=== PATIENT | male | born 1975 ===

== ENCOUNTER 2023-02-07 20:21 | Emergency (ER) | payer SELFPAY ==
--- OUTSIDE RECORDS SUMMARY | 2023-02-07 20:24 | XMS REPORT | Continuity of Care Document ---
:1975 Author Organization [facility] t Address [address] [place] [address] [place] [id number] Care Team Providers Name Role Phone Kyle Lyons Attending Clinician Unavailable Jem Castro Attending Clinician Unavailable Yury Gutierrez Attending Clinician Unavailable Physician, No Primary or Family Admitting Clinician Unavaila ble KNOW, DOES_NOT Admitting Clinician Unavailable Payers Payer Name Policy Type Policy Number Effective Date Expiration Date S ource Problems This patient has no known problems. Allergies, Adverse Reactions, Alerts Allergy Allergy Status Severity Reaction(s) Onset Inactive Treating Comm ents Source Name Type Date Date Clinician No Known DA Active U 2020-0 [facility] 09[facility]20 [facility] No Known DA Active U 2020-0 [facility] Allergie 09-20 [facility] Medications This patient has no known medications. Procedures This patient has no known procedures. Encounters Start End Encounter Admission Attending Care Care Encounter Source Date/Time Date/Time Type Type Clinicians Facility Department ID 2019-09-21 [facility] [id number] [facility] 22:36:00 [facility] 2022-05-08 2022-05-08 Emergency EM HARVEY Lyons ER [id number] [facility] 12:35:00 13:33:00 [facility] 2021-08-28 2021-08-28 Emergency EM HARVEY Castro [facility] [id number] [facility] 21:31:00 22:19:00 Jem [id number] [facility] 2021-08-28 2021-08-28 Emergency EM Gloria, [facility] [id number] [facility] 21:31:00 22:19:00 Jem Lynne [facility] 2021-04-03 2021-04-03 Emergency EM Yury Gutierrez [facility] [id number] [facility] 14:25:00 15:52:00 97 [facility] Results Test Description Test Time Test Comments Results Result Comments Source COMPREHENSIVE METABOLIC PANEL 2019-09-22 00:43:00 Test Item Value Reference Range Interpretation Comme nts SODIUM (test code = NA) 141 mmol/L 136-145 N POTASSIUM (test code = K) 4.1 mmol/L 3.5-5.1 N CHLORIDE (test code = CL) 103 mmol/L 98-107 N CARBON DIOXIDE (test code = CO2) 33 mmol/L 21-32 H GLUCOSE (test code = GLU) 91 mg/dL 70-100 N BLOOD UREA NITROGEN (test code = 8 mg/dL 7-18 N BUN) GLOMERULAR FILTRATION RATE (test > 60.00 >=60 Reporting units: code = GFR) mL/min/1.73m\S\ 2 (Modified MDRD formula)RE FERENCE RANGE: > or = 60 ml/mi n/1.73M2IF PATIENT IS AFRI CAN-STATELESS, MULTIPLY REPORT ED RESULT BY1.21. CREATININE (test code = CREAT) 0.98 mg/dl 0.70-1.30 N TOTAL PROTEIN (test code = PROT) 7.6 g/dl 6.4-8.2 N ALBUMIN (test code = ALB) 4.1 g/dl 3.4-5.0 N CALCIUM (test code = CA) 9.1 mg/dL 8.5-10.1 N BILIRUBIN TOTAL (test code = 0.3 mg/dL 0.2-1.0 N BILT) SGOT/AST (test code = AST) 25 U/L 15-37 N SGPT/ALT (test code = ALT) 42 U/L 12-78 N ALKALINE PHOSPHATASE TOTAL (test 75 U/L 45-117 N code = ALKP) [id number] 00:43:00 Test Item Value Reference Range Interpretation Comments LIPASE (test code = LIP) 168 U/L 73-393 N UA RFLX MICROSCOPIC [id number] 00:32:00 Test Item Value Reference Range Interpretation Comments UA COLOR (test code = COLU) YELLOW YELLOW UA APPEARANCE (test code = CLEAR CLEAR APPU) UA GLUCOSE DIPSTICK (test code NEGATIVE mg/dl NORMAL = DGLUU) UA BILIRUBIN DIPSTICK (test NEGATIVE mg/dl NEGATIVE code = BILU) UA KETONE DIPSTICK (test code NEGATIVE mg/dl NEGATIVE = KETU) UA SPECIFIC GRAVITY (test code 1.020 1.001-1.035 N = SGU) UA BLOOD DIPSTICK (test code = NEGATIVE /UL NEGATIVE RUSTY) UA PH DIPSTICK (test code = 8.5 4.6-8.0 A VLADIMIR) UA PROTEIN DIPSTICK (test code NEGATIVE mg/dl NEGATIVE = PROU) UA UROBILINIOGEN DIPSTICK 0.2 mg/dl NORMAL (test code = URO) UA NITRITE DIPSTICK (test code NEGATIVE NEGATIVE = MADELINE) UA LEUKOCYTE ESTERASE DIPSTICK NEGATIVE /UL NEGATIVE (test code = LEUU) UA COMMENT (test code = COMU) CLN CATCH Indication for culture: Flank PainURINE SOURCE: CLEAN CATCH URINECBC W/AUTO DIFF 2019-09-22 00:31:00 Test Item Value Reference Range Interpretation Comments WHITE BLOOD CELL (test code = 7.0 X10(3) 4.5-11.0 N WBC) RED BLOOD CELL (test code = 4.54 X10(6) 4.3-5.9 N RBC) HEMOGLOBIN (test code = HGB) 14.2 g/dL 13.5-18.0 N HEMATOCRIT (test code = HCT) 43.6 % 42.0-52.0 N MEAN CELL VOLUME (test code = 96.0 fL 78-100 N MCV) MEAN CELL HGB (test code = MCH) 31.3 pg 26.0-34.0 N MEAN CELL HGB CONCETRATION 32.6 g/dl 30.0-37.0 N (test code = MCHC) RED CELL DISTRIBUTION WIDTH 11.6 % 11.5-14.5 N (test code = RDW) PLATELET COUNT (test code = 266 X10(3) 150-350 N PLT) MEAN PLATELET VOLUME (test code 9.3 fl 8.7-11.4 N = MPV) NEUTROPHIL % (test code = NT%) 54.5 % 36.0-66.0 N IMMATURE GRANULOCYTE % (test 0.1 % 0.0-2.0 N code = IG%) LYMPHOCYTE % (test code = LY%) 34.1 % 16-50 N MONOCYTE % (test code = MO%) 8.9 % 0.0-13.0 N EOSINOPHIL % (test code = EO%) 2.1 % 0.0-4.5 N BASOPHIL % (test code = BA%) 0.3 % 0.0-1.5 N NEUTROPHIL # (test code = NT#) 3.8 X10(3) 1.7-7.7 N IMMATURE GRANULOCYTE # (test 0.01 X10(3)uL 0.00-0.03 N code = IG#) LYMPHOCYTE # (test code = LY#) 2.4 X10(3) 1.0-4.8 N MONOCYTE # (test code = MO#) 0.6 X10(3) 0.0-0.89 N EOSINOPHIL # (test code = EO#) 0.2 X10(3) 0.0-0.6 N BASOPHIL # (test code = BA#) 0.0 X10(3) 0.0-0.2 N RBC MORPHOLOGY REQUIRED (test NO NORMAL code = RBCM) - CT ABD PELVIS W/O [id number] 00:25:00 Name: TALAT LEO FSED : 1975 Age/S: 43 / M [address] Unit #: [id number] Loc: [place] [address] Phys: Sha Schmid MD Acct: [id number] Dis Date: Status: REG ER PHONE #: Exam Date: 09/21/2019 0001 FAX #: Reason: history of kidney stones EXAMS: CPT CODE:[id number] CT ABD PELVIS W/O CONT [id number] CT abdomen and pelvis without IV contrast. Indication: Abdominal pain Location: R16 Comparison: None Technique: CT images of the abdomen and pelvis were obtained from the diaphragm to the pubic symphysis without the administration of intravenous contrast contrast. Coronal reformats are provided. One or more of the following dose reduction techniques were used:Automated exposure control, adjustment of the mA and/or kV according to patient size, and/or utilization of iterative reconstruction technique. Findings: Lungs bases: Unremarkable. Upper GI: Small hiatal hernia is noted Liver: Noncontrast appearance is unremarkable. Gallbladder: Cholelithiasis is noted. Pancreas: Noncontrast appearance is unremarkable. Spleen: Noncontrast appearance is unremarkable. Adrenal glands: Noncontrast appearance is unremarkable. Kidneys: Noncontrast appearance is unremarkable with exception of small bilateral punctate renal calculi. Bowel: No bowel obstruction. The appendix is unremarkable with exception of internal stool. Large volume of stool seen throughout the colon Peritoneum: No ascites.. No free air or small hiatal hernia is noted Skeletal: No acute fracture.. Impr ession: Although limited by the absence of IV contrast, no definite acute abnormality is seen withinthe abdomen and pelvis to explain the patient's symptomology Additional findings as detailed above PAGE 1 Signed Report (CONTINUED) Name: TALAT LEO FSED : 1975 Age/S: 43 / M [address] Unit #: [id number] Loc: [place] [address] Phys: Sha Schmid MD Acct:[id number] Dis Date: Status: REG ER PHONE #: Exam Date: 09/21/2019 0001 FAX #: Reason: history ofkidney stones EXAMS: CPT CODE: [id number] CT ABD PELVIS W/O CONT 94719 (Continued) ElectronicallySigned by KATHY GILLIS M.D. on 09/22/2019 at 0025 Reported and signed by: KATHY GILLIS M.D. CC: Sha Chahal MD Technologist:Geoff Sparks CT (R) CTDI: 6.59 DLP: 327.15 Trnscb Date/Time: 09/22/2019 (0025) [email or web address] Orig Print D/T: S: 09/22/2019 (0028) PAGE 2 Signed Report
[2023-02-07 22:16] LABS: Absolute Lymphocytes (CBC) 1.4 K/uL (0.7-4.9); Hematocrit 43.6 % (39.6-49.0); Lymphocytes % 14.5 % (15.3-44.8); MCV 91.5 fL (80-100); MPV 7.5 fL (7.6-11.3); Platelets 281 thou/uL (152-406); RBC Red Blood Cell Count 4.77 M/uL (4.33-5.43)
[2023-02-07 22:40] LABS: Albumin 4.3 g/dL (3.4-5.0); Bilirubin Total 0.5 mg/dL (0.2-1.0); Potassium 3.6 mEq/L (3.5-5.1)
[2023-02-07] MEDS ORDERED: NA CHLORIDE 0.9% 1,000 ML ONE (23:59)
--- NOTE | 2023-02-08 00:52 | RAD REPORT ---
EXAM DESCRIPTION: CT - Abdomen Pelvis W Contrast - 02/07/2023 11:03 pm CLINICAL HISTORY: ABD PAIN COMPARISON: No comparisons TECHNIQUE: Thin cut axial CT imaging of the abdomen and pelvis was performed following intravenous a dministration of 95 mL Isovue 300. Multiplanar reformats were generated and reviewed. All CT scans are performed using dose optimization technique as appropriate and may include automated exposure control or mA/KV adjustment according to patient size. FINDINGS: No suspicious findings in the lung bases. The liver, spleen, adrenal glands, and pancreas show no suspicious findings. Gallbladder shows a sing le cholesterol containing 1.8 cm stone near the neck. Symmetric renal function is seen with no hydronephrosis or suspicious renal mass. Multiple punctate c alculi in the left renal upper and lower calyces not exceeding 2-3 millimeter in size. No dilated bowel loops or bowel wall thickening. No free air, free fluid or inflammatory stranding. N o hernia, mass or bulky lymphadenopathy. The urinary bladder is without significant finding. No suspicious bony findings. IMPRESSION: Left renal tiny calculi and a single cholesterol containing gallbladder stone. No other acute intra- abdominal process.
--- NOTE | 2023-02-08 00:59 | EDPHYS ---
Physician Documentation [facility] Name: Kevyn Bangura Jr Age: 47 yrs Sex: Male : 1975 Arrival Date: 02/07/2023 Time: 20:21 Bed 6 Private MD: ED Physician Adeel Sanders HPI: 02/07 21:46 This 47 yrs old Male presents to ER via Ambulatory with complaints of Abdominal Pain. kb 21:46 Pt reports abd pain that started while eating approx 30 minutes [employer]. Denies nausea, kb vomiting and diarrhea, fever. States the pain is sharp and is getting better since onset. Historical: - Allergies: 20:55 No Known Allergies; nj1 - Home Meds: 20:55 None [Active]; nj1 - PMHx: 20:55 None; nj1 - PSHx: 20:55 None; nj1 - Immunization history:: Adult Immunizations up to date. - Social history:: Smoking status: Reported history of juuling and/or vaping. ROS: 21:46 Constitutional: Negative for fever, chills, and weight loss, kb 21:46 Abdomen/GI: Positive for abdominal pain, Negative for nausea, vomiting, and diarrhea, 21:46 All other systems are negative, Exam: 21:46 Constitutional: This is a well developed, well nourished patient who is awake, alert, kb and in no acute distress. Head/Face: Normocephalic, atraumatic. ENT: Moist Mucous membranes Cardiovascular: Regular rate Respiratory: Respirations even and unlabored. No increased work of breathing. Talking in full sentences Skin: Warm, dry with normal turgor. Normal color. MS/ Extremity: Pulses equal, no cyanosis. Neurovascular intact. Full, normal range of motion. Neuro: Awake and alert, GCS 15, oriented to person, place, time, and situation. Moves all extremities. Normal gait. 21:46 Abdomen/GI: Inspection: abdomen appears normal, Bowel sounds: normal, Palpation: soft, in all quadrants, mild abdominal tenderness, in the right lower quadrant, Vital Signs: 20:53 BP 123 / 74; Pulse 74; Resp 18; Temp 97.7; Pulse Ox 100% ; Weight 68.04 kg; Height 5 nj1 ft. 6 in. ; 23:52 BP 119 / 81; Pulse 82; Resp 16; Pulse Ox 100% on R/A; km8 02/08 00:19 BP 121 / 88; Pulse 86; Resp 16; Pulse Ox 100% ; km8 01:15 BP 112 / 98; Pulse 78; Resp 17; Pulse Ox 100% ; jj7 02/07 20:53 Body Mass Index 24.21 (68.04 kg, 167.64 cm) nj1 MDM: 02/07 20:27 Patient medically screened. kb 21:47 Differential diagnosis: appendicitis, bowel obstruction, Cholelithiasis, kb diverticulitis, gastritis, non-specific abd pain, pancreatitis. Data reviewed: vital signs, nurses notes. 02/08 00:58 Counseling: I had a detailed discussion with the patient and/or guardian regarding the kb historical points, exam findings, and any diagnostic results supporting the discharge/admit diagnosis, lab results, radiology results, the need for outpatient follow up, a family practitioner, to return to the emergency department if symptoms worsen or persist or if there are any questions or concerns that arise at home. 02/07 20:52 Order name: CBC with Diff; Complete Time: 22:20 kb 02/07 20:52 Order name: CMP; Complete Time: 22:43 kb 02/07 20:52 Order name: Lipase; Complete Time: 22:43 kb 02/07 20:52 Order name: CT Abd/Pelvis - IV Contrast Only; Complete Time: 00:57 kb 02/07 20:52 Order name: IV Saline Lock; Complete Time: 22:03 kb 02/07 20:52 Order name: Labs collected and sent; Complete Time: 22:03 kb Administered Medications: 02/07 23:49 Drug: NS 0.9% IV 1000 ml IV at 1 bolus Per protocol; 1000 mL bolus Route: IV; Rate: 1 jj7 bolus; Site: right forearm; 02/08 00:24 Follow up: Response: No adverse reaction; IV Status: Completed infusion; IV Intake: km8 1000ml Disposition: 01:26 Co-signature as Attending Physician, Adeel Sanders MD I agree with the assessment sp4 and plan of care. I reviewed the patient's care provided by the Advanced Practice Provider and agree with the diagnosis and treatment plan. Disposition Summary: 02/08/23 00:58 Discharge Ordered Notes: Location: Home kb Condition: Stable kb Diagnosis - Abdominal pain, Generalized kb Followup: kb - With: Emergency Department - When: As needed - Reason: Worsening of condition Followup: kb - With: Private Physician - When: 2 - 3 days - Reason: Recheck today's complaints, Continuance of care, Re-evaluation by your physician Discharge Instructions: - Discharge Summary Sheet kb - Cholelithiasis, Rssb-[id number] kb - Abdominal Pain, Adult, [id number]-[id number] kb Forms: - Medication Reconciliation Form kb - Thank You Letter kb - Antibiotic Education kb - Prescription Opioid Use kb - Patient Portal Instructions kb - Leadership Thank You Letter kb Signatures: Dispatcher [employer] EDMS Marah Feldman, PROCESSING ANALYST-C PROCESSING ANALYST-Zaria Tran RN RN jj7 Adeel Sanders MD MD sp4 Joselyn Farah RN RN nj1 Meredith Palacio RN km8
--- NOTE | 2023-02-08 00:59 | ER ---
Nurse's Notes [facility] Name: Kevyn Bangura Jr Age: 47 yrs Sex: Male : 1975 Arrival Date: 02/07/2023 Time: 20:21 Bed 6 Private MD: Diagnosis: Abdominal pain, Generalized Presentation: 02/07 20:53 Chief complaint: Patient states: "30 minutes ago I started having sharp pain in my nj1 stomach. I feel nauseous". Coronavirus screen: Vaccine status: Patient reports receiving the 2nd dose of the covid vaccine. Ebola Screen: No symptoms or risks identified at this time. Initial Sepsis Screen: Does the patient meet any 2 criteria? No. Patient's initial sepsis screen is negative. Does the patient have a suspected source of infection? No. Patient's initial sepsis screen is negative. Risk Assessment: Do you want to hurt yourself or someone else? Patient reports no desire to harm self or others. Onset of symptoms was February 07, 2023. 20:53 Method Of Arrival: Ambulatory [facility] 20:53 Acuity: AVILA 3 nj Historical: - Allergies: 20:55 No Known Allergies; sd1 - Home Meds: 20:55 None [Active]; nj1 - PMHx: 20:55 None; nj1 - PSHx: 20:55 None; nj1 - Immunization history:: Adult Immunizations up to date. - Social history:: Smoking status: Reported history of juuling and/or vaping. Screenin:49 [facility] ED Fall Risk Assessment (Adult) History of falling in the last 3 months, jj7 including since admission No falls in past 3 months (0 pts) Confusion or Disorientation No (0 pts) Intoxicated or Sedated No (0 pts) Impaired Gait No (0 pts) Mobility Assist Device Used No (0 pt) Altered Elimination No (0 pt) Score/Fall Risk Level 0 - 2 = Low Risk. [facility] ED Fall Risk Assessment (Adult) Score/Fall Risk Level 0 - 2 = Low Risk Oriented to surroundings, Maintained a safe environment, Educated pt \\T\\ family on fall prevention, incl call for assistance when getting out of bed. Abuse screen: Denies threats or abuse. Nutritional screening: No deficits noted. Tuberculosis screening: No symptoms or risk factors identified. Assessment: 23:49 Reassessment: Patient is alert, oriented x 3, equal unlabored respirations, skin jj7 warm/dry/pink. ASSUMED CARE OF PT. PT MOVED TO BED. NO PAIN OR DISTRESS NOTED. CALL DHALIWAL IN REACH Patient denies pain at this time. Patient states feeling better. Pain: Denies pain. GI: No deficits noted. Bowel sounds present X 4 quads. Abd is soft and non tender X 4 quads. Abd is non tender X 4 quads. 23:49 General: Appears in no apparent distress. comfortable, Behavior is calm, cooperative, jj7 appropriate for age. Vital Signs: 20:53 BP 123 / 74; Pulse 74; Resp 18; Temp 97.7; Pulse Ox 100% ; Weight 68.04 kg; Height 5 nj1 ft. 6 in. ; 23:52 BP 119 / 81; Pulse 82; Resp 16; Pulse Ox 100% on R/A; km8 02/08 00:19 BP 121 / 88; Pulse 86; Resp 16; Pulse Ox 100% ; km8 01:15 BP 112 / 98; Pulse 78; Resp 17; Pulse Ox 100% ; jj7 02/07 20:53 Body Mass Index 24.21 (68.04 kg, 167.64 cm) nj1 ED Course: 02/07 20:25 Patient arrived in ED. gm2 20:27 Marah Feldman FNP-C is [facility]. kb 20:27 Adeel Sanders MD is Attending Physician. kb 20:55 Triage completed. nj1 20:56 Arm band placed on. nj1 22:03 CBC with Diff Sent. bc6 22:03 CMP Sent. bc6 22:03 Lipase Sent. bc6 22:03 Inserted saline lock: 20 gauge in right forearm, using aseptic technique. Blood bc6 collected. 23:05 CT Abd/Pelvis - IV Contrast Only In Process Unspecified. EDMS 23:49 Bed in low position. Call light in reach. Warm blanket given. jj7 23:49 No provider procedures requiring assistance completed. jj7 02/08 01:15 Provided Education on: F/U. jj7 01:15 IV discontinued, intact, bleeding controlled, No redness/swelling at site. Pressure jj7 dressing applied. Administered Medications: 02/07 23:49 Drug: NS 0.9% IV 1000 ml IV at 1 bolus Per protocol; 1000 mL bolus Route: IV; Rate: 1 jj7 bolus; Site: right forearm; 02/08 00:24 Follow up: Response: No adverse reaction; IV Status: Completed infusion; IV Intake: km8 1000ml Medication: 02/07 23:49 VIS not applicable for this client. jj7 Intake: 02/08 00:24 IV: 1000ml; Total: 1000ml. km8 Outcome: 00:58 Discharge ordered by MD. ny 01:15 Discharged to home ambulatory, jj7 01:15 Condition: improved 01:15 Discharge instructions given to patient, Instructed on discharge instructions, follow up and referral plans. Demonstrated understanding of instructions, follow-up care, 01:52 Patient left the ED. jj7 Signatures: Dispatcher [employer] EDMS Marah Feldman, BINDER COVERSTITCH-C BINDER COVERSTITCH-Zaria Tran, RN RN jj7 Devi Duque 6 Joselyn Farah RN RN nj1 Perla Barreto 2 Meredith Palacio, RN RN km8 Corrections: (The following items were deleted from the chart) 02/07 20:56 20:53 Pulse 74bpm; Resp 18bpm; Pulse Ox 100%; Temp 97.7F; 68.04 kg; Height 5 ft. 6 in.; nj1 BMI: 24.2; nj1
[2023-02-08 02:26] VITALS: TEMP 97.7; O2SAT 100
[2023-02-08 02:31] VITALS: BP 112/98
== END 2023-02-08 01:52 | disposition home or self-care (01) ==
LOC: ER 20:21
DX: R10.84 Generalized abdominal pain (principal)
CPT/HCPCS: 36415; 74177; 80053; 83690; 85025; 96360; 99284; J7030; Q9967